=== PATIENT | male | born 1995 | race African-American/Black ===

== ENCOUNTER 2017-10-15 20:37 | Emergency (ER) | payer OTHER ==
[2017-10-15 21:35] LABS: HEMATOCRIT 37.7 % (42.0-52.0); HEMOGLOBIN 12.9 g/dl (13.5-17.5); MEAN CORPUSCULAR HGB CONC 34.2 g/dl (32.0-36.5); MEAN CORPUSCULAR VOLUME 75.9 fl (80.0-96.0); PLATELET COUNT, AUTOMATED 249 10^3/uL (150-450); RED BLOOD COUNT 4.97 10^6/uL (4.30-6.10); RED CELL DISTRIBUTION WIDTH 13.1 % (11.5-14.5)
[2017-10-15 21:46] LABS: AMPHETAMINES LEVEL URINE NEGATIVE (NEGATIVE); BARBITURATES URINE NEGATIVE (NEGATIVE); BENZODIAZEPINES URINE NEGATIVE (NEGATIVE); CANNABINOIDS URINE NEGATIVE (NEGATIVE); COCAINE METABOLITE URINE NEGATIVE (NEGATIVE); METHADONE URINE NEGATIVE (NEGATIVE); OPIATES URINE NEGATIVE (NEGATIVE); PHENCYCLIDINE URINE NEGATIVE (NEGATIVE)
[2017-10-15 21:58] LABS: ACETAMINOPHEN LEVEL 27.1 UG/ML (10.0-30.0); ALBUMIN 4.1 GM/DL (3.2-5.2); ALBUMIN/GLOBULIN RATIO 1.14 (1.00-1.93); ALKALINE PHOSPHATASE 96 U/L (45-117); ALT/SGPT 23 U/L (12-78); ANION GAP 7 MEQ/L (8-16); AST/SGOT 18 U/L (7-37); BILIRUBIN,DIRECT 0.3 MG/DL (0.0-0.2); BILIRUBIN,TOTAL 1.3 MG/DL (0.2-1.0); BLOOD UREA NITROGEN 14 MG/DL (7-18); CALCIUM LEVEL 8.8 MG/DL (8.5-10.1); CARBON DIOXIDE LEVEL 28 MEQ/L (21-32); CHLORIDE LEVEL 105 MEQ/L (98-107); CREATININE FOR GFR 1.13 MG/DL (0.70-1.30); ETHYL ALCOHOL (ETHANOL) 0.003 % (0.000-0.010); GLOMERULAR FILTRATION RATE > 60.0 (>60); GLUCOSE, FASTING 102 MG/DL (70-100); POTASSIUM SERUM 3.8 MEQ/L (3.5-5.1); SALICYLATE LEVEL < 1.7 MG/DL (5.0-30.0); SODIUM LEVEL 140 MEQ/L (136-145); TOTAL PROTEIN 7.7 GM/DL (6.4-8.2)
== END 2017-10-15 23:21 | disposition home or self-care (01) ==
LOC: M ED 20:37
DX: F41.8 Other specified anxiety disorders (principal); F32.9 Major depressive disorder, single episode, unspecified
CPT/HCPCS: G0480

== ENCOUNTER 2017-11-18 13:55 | Inpatient (IN) | payer OTHER ==
[2017-11-18 15:18] LABS: HEMATOCRIT 42.9 % (42.0-52.0); HEMOGLOBIN 14.7 g/dl (13.5-17.5); MEAN CORPUSCULAR HGB CONC 34.3 g/dl (32.0-36.5); MEAN CORPUSCULAR VOLUME 75.8 fl (80.0-96.0); PLATELET COUNT, AUTOMATED 265 10^3/uL (150-450); RED BLOOD COUNT 5.66 10^6/uL (4.30-6.10); RED CELL DISTRIBUTION WIDTH 12.8 % (11.5-14.5); WHITE BLOOD COUNT 6.4 10^3/uL (4.0-10.0)
[2017-11-18 15:33] LABS: ALBUMIN 4.4 GM/DL (3.2-5.2); ALBUMIN/GLOBULIN RATIO 1.13 (1.00-1.93); ALKALINE PHOSPHATASE 113 U/L (45-117); ALT/SGPT 20 U/L (12-78); ANION GAP 8 MEQ/L (8-16); AST/SGOT 11 U/L (7-37); BILIRUBIN,DIRECT 0.3 MG/DL (0.0-0.2); BILIRUBIN,TOTAL 1.3 MG/DL (0.2-1.0); BLOOD UREA NITROGEN 16 MG/DL (7-18); CALCIUM LEVEL 8.9 MG/DL (8.5-10.1); CARBON DIOXIDE LEVEL 28 MEQ/L (21-32); CHLORIDE LEVEL 104 MEQ/L (98-107); ETHYL ALCOHOL (ETHANOL) < 0.003 % (0.000-0.010); GLOMERULAR FILTRATION RATE > 60.0 (>60); GLUCOSE, FASTING 84 MG/DL (70-100); SALICYLATE LEVEL < 1.7 MG/DL (5.0-30.0); SODIUM LEVEL 140 MEQ/L (136-145); THYROID STIMULATING HORMONE 0.909 uIU/ML (0.358-3.740); TOTAL PROTEIN 8.3 GM/DL (6.4-8.2)
[2017-11-18 15:42] LABS: ACETAMINOPHEN LEVEL < 2.0 UG/ML (10.0-30.0)
[2017-11-18 20:18] LABS: AMPHETAMINES LEVEL URINE NEGATIVE (NEGATIVE); BARBITURATES URINE NEGATIVE (NEGATIVE); BENZODIAZEPINES URINE NEGATIVE (NEGATIVE); CANNABINOIDS URINE NEGATIVE (NEGATIVE); COCAINE METABOLITE URINE NEGATIVE (NEGATIVE); METHADONE URINE NEGATIVE (NEGATIVE); OPIATES URINE NEGATIVE (NEGATIVE); PHENCYCLIDINE URINE NEGATIVE (NEGATIVE)
[2017-11-18] MEDS ORDERED: MOM 30ML SUSPENSION UDC PO (23:15)
[2017-11-18] MEDS ORDERED: MAALOX 30 ML SUSP *UDC PO (23:15)
[2017-11-18] MEDS ORDERED: ACETAMINOPHEN TAB 650MG DOSE (2X325MG) PO (23:15)
[2017-11-18] MEDS ORDERED: LORazepam 1 MG TAB PO (23:30)
[2017-11-19] MEDS: CitaloPRAM (CeleXA) 20 MG TAB PO (16:30)
[2017-11-20] MEDS: CitaloPRAM (CeleXA) 20 MG TAB PO (08:28)
[2017-11-21] MEDS: CitaloPRAM (CeleXA) 20 MG TAB PO (08:18)
[2017-11-22] MEDS: CitaloPRAM (CeleXA) 20 MG TAB PO (08:21)
[2017-11-23] MEDS: CitaloPRAM (CeleXA) 20 MG TAB PO (08:17)
[2017-11-23] MEDS: traZODone 50 MG TAB PO (23:01)
[2017-11-24] MEDS: CitaloPRAM (CeleXA) 20 MG TAB PO (08:35)
[2017-11-25] MEDS: CitaloPRAM (CeleXA) 20 MG TAB PO (09:04)
[2017-11-26] MEDS: CitaloPRAM (CeleXA) 20 MG TAB PO (09:06)
[2017-11-27] MEDS: CitaloPRAM (CeleXA) 20 MG TAB PO (08:46)
[2017-11-28] MEDS: CitaloPRAM (CeleXA) 20 MG TAB PO (08:14)
[2017-11-29] MEDS: CitaloPRAM (CeleXA) 20 MG TAB PO (09:00)
[2017-11-30] MEDS: CitaloPRAM (CeleXA) 20 MG TAB PO (08:56)
[2017-12-01] MEDS: CitaloPRAM (CeleXA) 20 MG TAB PO (08:36)
[2017-12-02] MEDS: CitaloPRAM (CeleXA) 20 MG TAB PO (08:18)
== END 2017-12-02 12:45 | disposition home or self-care (01) | DRG 885 ==
LOC: M ED 13:55 → M ED INP 22:03 → M PSY 23:24
DX: F33.2 Major depressive disorder, recurrent severe without psychotic features (principal); F60.2 Antisocial personality disorder; Z63.0 Problems in relationship with spouse or partner

== ENCOUNTER 2018-03-23 16:12 | Emergency (ER) | payer OTHER | END 2018-03-23 19:35 | disposition home or self-care (01) | LOC: M ED 16:12 | DX: F43.0 Acute stress reaction (principal); F32.9 Major depressive disorder, single episode, unspecified; Z79.899 Other long term (current) drug therapy | CPT/HCPCS: 99284 ==

== ENCOUNTER 2018-04-09 22:26 | Inpatient (IN) | payer OTHER ==
[2018-04-09 23:13] LABS: BASO % 0.5 % (0.0-1.0); EOS # 0.2 10^3/uL (0.0-0.50); EOS % 2.9 % (0.0-3.0); HEMATOCRIT 41.2 % (42.0-52.0); HEMOGLOBIN 13.7 g/dl (13.5-17.5); IMMATURE GRANULOCYTE % 0.3 % (0-3.0); LYMPH # 2.1 10^3/uL (1.5-6.5); LYMPH % 36.1 % (24.0-44.0); MEAN CORPUSCULAR HEMOGLOBIN 25.8 pg (27.0-33.0); MEAN CORPUSCULAR HGB CONC 33.3 g/dl (32.0-36.5); MEAN CORPUSCULAR VOLUME 77.7 fl (80.0-96.0); MONO # 0.9 10^3/uL (0.0-0.8); MONO % 14.9 % (0.0-5.0); NEUTROPHILS # 2.7 10^3/uL (1.8-7.7); NEUTROPHILS % 45.3 % (36.0-66.0); PLATELET COUNT, AUTOMATED 277 10^3/uL (150-450); RED CELL DISTRIBUTION WIDTH 12.8 % (11.5-14.5); WHITE BLOOD COUNT 5.9 10^3/uL (4.0-10.0)
[2018-04-09] MEDS: CHARCOAL ACTIVATED LIQUID 25 GM/120 ML BTL PO (23:33)
[2018-04-09 23:40] LABS: ACETAMINOPHEN LEVEL 34.9 UG/ML (10.0-30.0); ALBUMIN 3.9 GM/DL (3.2-5.2); ALBUMIN/GLOBULIN RATIO 0.98 (1.00-1.93); ALKALINE PHOSPHATASE 105 U/L (45-117); ALT/SGPT 29 U/L (12-78); ANION GAP 9 MEQ/L (8-16); AST/SGOT 14 U/L (7-37); BILIRUBIN,DIRECT 0.1 MG/DL (0.0-0.2); BILIRUBIN,TOTAL 0.6 MG/DL (0.2-1.0); BLOOD UREA NITROGEN 18 MG/DL (7-18); CALCIUM LEVEL 8.6 MG/DL (8.5-10.1); CARBON DIOXIDE LEVEL 28 MEQ/L (21-32); CHLORIDE LEVEL 102 MEQ/L (98-107); CPK CREATINE PHOSPHOKINASE 146 U/L (39-308); CREATININE FOR GFR 1.19 MG/DL (0.70-1.30); ETHYL ALCOHOL (ETHANOL) < 0.003 % (0.000-0.010); GLOMERULAR FILTRATION RATE > 60.0 (>60); GLUCOSE, FASTING 97 MG/DL (70-100); POTASSIUM SERUM 3.8 MEQ/L (3.5-5.1); SALICYLATE LEVEL < 1.7 MG/DL (5.0-30.0); SODIUM LEVEL 139 MEQ/L (136-145); TOTAL PROTEIN 7.9 GM/DL (6.4-8.2)
[2018-04-10 00:23] LABS: CK-MB VALUE MASS < 1.0 NG/ML (<3.6); MB/CK RELATIVE INDEX 0.68 (< OR =4); TROPONIN I < 0.02 NG/ML (< 0.10)
[2018-04-10 02:23] LABS: ACETAMINOPHEN LEVEL 18.5 UG/ML (10.0-30.0)
[2018-04-10] MEDS ORDERED: METOCLOPRAMIDE INJ 10MG/2ML VIAL (J2765) IV (11:45)
[2018-04-10 11:49] LABS: AMPHETAMINES LEVEL URINE NEGATIVE (NEGATIVE); BARBITURATES URINE NEGATIVE (NEGATIVE); BENZODIAZEPINES URINE NEGATIVE (NEGATIVE); CANNABINOIDS URINE NEGATIVE (NEGATIVE); COCAINE METABOLITE URINE NEGATIVE (NEGATIVE); METHADONE URINE NEGATIVE (NEGATIVE); OPIATES URINE NEGATIVE (NEGATIVE); PHENCYCLIDINE URINE NEGATIVE (NEGATIVE)
[2018-04-11 06:18] LABS: EOS # 0.2 10^3/uL (0.0-0.50); EOS % 4.7 % (0.0-3.0); HEMATOCRIT 39.6 % (42.0-52.0); HEMOGLOBIN 13.6 g/dl (13.5-17.5); IMMATURE GRANULOCYTE % 0.2 % (0-3.0); LYMPH # 1.8 10^3/uL (1.5-6.5); LYMPH % 43.9 % (24.0-44.0); MEAN CORPUSCULAR HGB CONC 34.3 g/dl (32.0-36.5); MEAN CORPUSCULAR VOLUME 75.6 fl (80.0-96.0); MONO # 0.6 10^3/uL (0.0-0.8); MONO % 14.5 % (0.0-5.0); NEUTROPHILS # 1.4 10^3/uL (1.8-7.7); NEUTROPHILS % 35.7 % (36.0-66.0); PLATELET COUNT, AUTOMATED 276 10^3/uL (150-450); RED BLOOD COUNT 5.24 10^6/uL (4.30-6.10); RED CELL DISTRIBUTION WIDTH 12.6 % (11.5-14.5)
[2018-04-11 06:40] LABS: ANION GAP 5 MEQ/L (8-16); BLOOD UREA NITROGEN 16 MG/DL (7-18); CALCIUM LEVEL 8.9 MG/DL (8.5-10.1); CARBON DIOXIDE LEVEL 30 MEQ/L (21-32); CHLORIDE LEVEL 104 MEQ/L (98-107); GLOMERULAR FILTRATION RATE > 60.0 (>60); GLUCOSE, FASTING 105 MG/DL (70-100); POTASSIUM SERUM 4.1 MEQ/L (3.5-5.1); SODIUM LEVEL 139 MEQ/L (136-145)
== END 2018-04-13 15:30 | DRG 918 ==
LOC: M ED 22:26 → M ED INP 04-10 11:39 → M MSPAV 04-10 20:15
DX: T39.1X2A Poisoning by 4-Aminophenol derivatives, intentional self-harm, initial encounter (principal); T43.222A Poisoning by selective serotonin reuptake inhibitors, intentional self-harm, initial encounter; T14.91XA Suicide attempt, initial encounter; F32.9 Major depressive disorder, single episode, unspecified; Z79.899 Other long term (current) drug therapy; Y92.139 Unspecified place military base as the place of occurrence of the external cause

== ENCOUNTER 2018-04-13 15:22 | Inpatient (IN) | payer OTHER ==
[~2018-04-13 15:22] MED LIST: IBUPROFEN 400 MG TAB PO; MOM 30ML SUSPENSION UDC PO
[2018-04-14] MEDS ORDERED: OLANZapine ORAL DISINTEGRATING TAB 5MG PO (17:30)
[2018-04-14] MEDS: OLANZapine ORAL DISINTEGRATING TAB 5MG PO (17:42)
[2018-04-14] MEDS: traZODone 50 MG TAB PO (22:52)
[2018-04-15] MEDS: VENLAFAXINE 37.5 MG TAB PO (15:06)
[2018-04-15] MEDS: traZODone 50 MG TAB PO (21:31)
[2018-04-16] MEDS: VENLAFAXINE 37.5 MG TAB PO (09:38)
[2018-04-16] MEDS: traZODone 50 MG TAB PO ×2 (20:55→23:22)
[2018-04-17] MEDS: VENLAFAXINE 37.5 MG TAB PO (09:44)
[2018-04-17] MEDS: traZODone 50 MG TAB PO (22:52)
[2018-04-18] MEDS: VENLAFAXINE 37.5 MG TAB PO (08:06)
[2018-04-19] MEDS: traZODone 50 MG TAB PO ×2 (00:06→22:29)
[2018-04-19] MEDS: VENLAFAXINE 37.5 MG TAB PO (09:58)
[2018-04-20] MEDS: VENLAFAXINE 37.5 MG TAB PO (09:27)
[2018-04-20] MEDS: traZODone 50 MG TAB PO (22:19)
[2018-04-21] MEDS: VENLAFAXINE 37.5 MG TAB PO (09:34)
== END 2018-04-21 12:00 | disposition home or self-care (01) | DRG 885 ==
LOC: M PSY 15:22
DX: F33.9 Major depressive disorder, recurrent, unspecified (principal); Z91.5 Personal history of self-harm

== ENCOUNTER 2018-07-09 13:32 | Emergency (ER) | payer OTHER ==
[~2018-07-09] VITALS: Ht 180.3 cm; Wt 88.6 kg
[~2018-07-09 13:32] MED LIST changes: +ACET1TAB55 PO; +ARIP5TA PO; +CELE10TA PO; +CELE20TA PO; +CELE40TA PO; +CITA-231 PO; -IBUPROFEN 400 MG TAB PO; +MIRT15TA3 PO; -MOM 30ML SUSPENSION UDC PO; +NICO21PAT TD; +TRAZO50TA PO; +VENL37TA PO
[2018-07-09 14:29] LABS: HEMATOCRIT 43.1 % (42.0-52.0); HEMOGLOBIN 14.8 g/dl (13.5-17.5); MEAN CORPUSCULAR HEMOGLOBIN 26.1 pg (27.0-33.0); MEAN CORPUSCULAR HGB CONC 34.3 g/dl (32.0-36.5); MEAN CORPUSCULAR VOLUME 76.1 fl (80.0-96.0); PLATELET COUNT, AUTOMATED 291 10^3/uL (150-450); RED BLOOD COUNT 5.66 10^6/uL (4.30-6.10); WHITE BLOOD COUNT 4.7 10^3/uL (4.0-10.0)
[2018-07-09 15:13] LABS: AMPHETAMINES LEVEL URINE NEGATIVE (NEGATIVE); BARBITURATES URINE NEGATIVE (NEGATIVE); BENZODIAZEPINES URINE NEGATIVE (NEGATIVE); CANNABINOIDS URINE NEGATIVE (NEGATIVE); COCAINE METABOLITE URINE NEGATIVE (NEGATIVE); METHADONE URINE NEGATIVE (NEGATIVE); OPIATES URINE NEGATIVE (NEGATIVE); PHENCYCLIDINE URINE NEGATIVE (NEGATIVE)
[2018-07-09 15:24] LABS: ACETAMINOPHEN LEVEL < 2.0 UG/ML (10.0-30.0); ALBUMIN 4.2 GM/DL (3.2-5.2); ALT/SGPT 29 U/L (12-78); BILIRUBIN,DIRECT 0.2 MG/DL (0.0-0.2); BILIRUBIN,TOTAL 0.7 MG/DL (0.2-1.0); BLOOD UREA NITROGEN 19 MG/DL (7-18); CALCIUM LEVEL 9.3 MG/DL (8.5-10.1); CARBON DIOXIDE LEVEL 27 MEQ/L (21-32); CHLORIDE LEVEL 102 MEQ/L (98-107); CREATININE FOR GFR 1.15 MG/DL (0.70-1.30); ETHYL ALCOHOL (ETHANOL) < 0.003 % (0.000-0.010); GLOMERULAR FILTRATION RATE > 60.0 (>60); GLUCOSE, FASTING 96 MG/DL (70-100); SALICYLATE LEVEL < 1.7 MG/DL (5.0-30.0); SODIUM LEVEL 137 MEQ/L (136-145); THYROID STIMULATING HORMONE 0.911 uIU/ML (0.358-3.740); TOTAL PROTEIN 8.2 GM/DL (6.4-8.2)
[2018-07-09 17:43] VITALS: BP 133/84
== END 2018-07-09 17:49 | disposition home or self-care (01) ==
LOC: M ED 13:32
DX: F43.20 Adjustment disorder, unspecified (principal); F33.9 Major depressive disorder, recurrent, unspecified; Z79.899 Other long term (current) drug therapy
CPT/HCPCS: 36415; 80048; 80076; 80307; 84443; 85027; 99284; G0480

== ENCOUNTER 2018-08-12 17:47 | Inpatient (IN) | payer OTHER ==
[~2018-08-12] VITALS: Ht 182.9 cm; Wt 93.3 kg
[2018-08-12 18:07] LABS: BASO % 0.7 % (0.0-1.0); EOS # 0.1 10^3/uL (0.0-0.50); EOS % 1.6 % (0.0-3.0); HEMATOCRIT 41.8 % (42.0-52.0); HEMOGLOBIN 14.4 g/dl (13.5-17.5); LYMPH # 1.9 10^3/uL (1.5-6.5); MEAN CORPUSCULAR HEMOGLOBIN 26.1 pg (27.0-33.0); MEAN CORPUSCULAR HGB CONC 34.4 g/dl (32.0-36.5); MEAN CORPUSCULAR VOLUME 75.9 fl (80.0-96.0); MONO # 0.8 10^3/uL (0.0-0.8); MONO % 14.9 % (0.0-5.0); NEUTROPHILS # 2.7 10^3/uL (1.8-7.7); NEUTROPHILS % 48.4 % (36.0-66.0); PLATELET COUNT, AUTOMATED 246 10^3/uL (150-450); RED BLOOD COUNT 5.51 10^6/uL (4.30-6.10); WHITE BLOOD COUNT 5.5 10^3/uL (4.0-10.0)
[2018-08-12] MEDS ORDERED: NS 2,000 ML IV ONE (18:30)
[2018-08-12 18:53] LABS: ACETAMINOPHEN LEVEL < 2.0 UG/ML (10.0-30.0); ALBUMIN 4.1 GM/DL (3.2-5.2); ALT/SGPT 30 U/L (12-78); BILIRUBIN,DIRECT 0.3 MG/DL (0.0-0.2); BLOOD UREA NITROGEN 16 MG/DL (7-18); CALCIUM LEVEL 8.5 MG/DL (8.5-10.1); CARBON DIOXIDE LEVEL 26 MEQ/L (21-32); CHLORIDE LEVEL 102 MEQ/L (98-107); CPK CREATINE PHOSPHOKINASE 116 U/L (39-308); ETHYL ALCOHOL (ETHANOL) 0.004 % (0.000-0.010); GLOMERULAR FILTRATION RATE > 60.0 (>60); GLUCOSE, FASTING 135 MG/DL (70-100); SALICYLATE LEVEL < 1.7 MG/DL (5.0-30.0); SODIUM LEVEL 138 MEQ/L (136-145)
--- NOTE | 2018-08-12 21:10 | ECGEPIP ---
Stationary ECG Study [facility] - ED Test Date: 2018-08-12 Pat Name: RODGER LANDA Department: Room: - Gender: M Poultry Raiser: hannah : 1995 Requested By: Kwaku Smith Order Number: [id number] Reading MD: Jenna Ceron Measurements Intervals [place] Rate: 70 P: 68 AR: 137 QRS: 77 QRSD: 106 T: 55 QT: 451 QTc: 489 Interpretive Statements SINUS RHYTHM LEFT VENTRICULAR HYPERTROPHY AND ST-T CHANGE EARLY REPOLARIZATION, CLINICAL CORRELATION SIMILAR 04/10/18 Electronically Signed On 08-12-2018 21:10:01 EST by Jenna Ceron
[2018-08-12] MEDS ORDERED: PHENYLEPHRINE INJ 10MG/ML VIAL (J2370) SQ ONE (22:00)
[2018-08-12] MEDS ORDERED: NS 1,000 ML IV ONE (23:00)
[2018-08-12] MEDS ORDERED: POTASSIUM CHLORIDE 10 MEQ SR TABLET PO ONE (23:15)
[2018-08-13 00:28] LABS: AMPHETAMINES LEVEL URINE NEGATIVE (NEGATIVE); BARBITURATES URINE NEGATIVE (NEGATIVE); BENZODIAZEPINES URINE NEGATIVE (NEGATIVE); CANNABINOIDS URINE NEGATIVE (NEGATIVE); COCAINE METABOLITE URINE NEGATIVE (NEGATIVE); METHADONE URINE NEGATIVE (NEGATIVE); OPIATES URINE NEGATIVE (NEGATIVE); PHENCYCLIDINE URINE NEGATIVE (NEGATIVE)
[2018-08-13] MEDS ORDERED: LORazepam 1 MG TAB PO PRN (01:00)
[2018-08-13] MEDS ORDERED: ACETAMINOPHEN TAB 650MG DOSE (2X325MG) PO PRN (01:00)
[2018-08-13] MEDS ORDERED: MOM 30ML SUSPENSION UDC PO PRN (01:00)
[2018-08-13] MEDS ORDERED: MAALOX 30 ML SUSP *UDC PO PRN (01:00)
[2018-08-13] MEDS ORDERED: TRAZ-160 PO (01:23)
[2018-08-13] MEDS ORDERED: VENL75CA47 PO (01:23)
[2018-08-13 01:40] VITALS: BP 126/67
[2018-08-13 06:24] VITALS: BP 131/60
[2018-08-13] MEDS ORDERED: VENLAFAXINE 37.5 MG TAB PO SCH (09:00)
--- NOTE | 2018-08-13 09:50 | HPEPDOC ---
[facility] Medical History & Physical Date of Admission Aug 12, 2018 History and Physical PCP: KISHA Raines ATTENDING: Dr. Ashish Calvin HPI: 23 yo M admitted to [facility] for unspecified depressive disorder, being medically examined today. The patient was brought to the emergency department as per EMS after reporting taking 1100 mg of trazodone at 1640 hrs. on 08/12/18 in a suicide attempt. The patient was medically stabilized in the emergency department, poison control consulted and was medically cleared for admission to [facility]. The pt has no voiced concerns at this time. The patient denies fevers, chills, chest pain, shortness of breath, cough, abdo isauro pain, urinary complaints, change in bowel habits. Denies nausea, vomiting, diarrhea. PMHx: Anxiety Depression History of SI/SA, overdose Self-harm, cutting PSHX: Denies SOCHX: Resides in: [facility], from [place] Marital Status: Employment: Active duty Tobacco use: denies ETOH: Patient denies Illicit Drugs: Denies IV Drug Use: Denies FAMHX: Patient reports that he is from [place], he reported he has no family there, that his family was . ROS: As noted in HPI, otherwise 11pt ROS of systems reviewed and unremarkable. PE: GEN: 23 yo M, appears stated age. Well-nourished, well developed. No acute distress. Alert and oriented x 3. Pleasant, interactive. HEENT: Normocephalic, atraumatic. Pupils are equal, round, and reactive to light. Extraocular movements are intact. No nystagmus appreciated. Sclera are nonicteric. Conjunctiva without injection. Nose midline. Nasal turbinates without bogginess. EACs both patent BL. TMs both visualized and becker with good cone of light, no bulging or erythema. No facial asymmetry. Moist mucous membranes. Dentition fair. Pharynx pink and moist, no cobblestoning. Neck supple, trachea midline. No lymphadenopathy or thyromegaly appreciated. CHEST: Regular rate and rhythm, +S1, +S2 LUNGS: Clear to auscultation bilaterally. No wheezes, rales, or rhonchi. Breathing appears symmetric and easy. Patient is speaking in full sentences. No accessory muscle use. ABD: Round, soft, non-tender, non-distended. +Bowel sounds throughout. No rebound or guarding. No costovertebral angle tenderness. EXT: Pulses 2+ bilaterally dorsalis pedis and radial. No lower extremity edema appreciated. SKIN: [place], dry, warm. Capillary refill <2sec. No rashes. NEURO: Alert and oriented x 3. Cranial nerves III-XII are intact. No focal deficits appreciated. EKG: SINUS RHYTHM LEFT VENTRICULAR HYPERTROPHY AND ST-T CHANGE EARLY REPOLARIZATION, CLINICAL CORRELATION SIMILAR 04/10/18 Electronically Signed On 08-12-2018 21:10:01 EST by Jenna Ceron A&P: 23 yo M admitted to [facility] for unspecified depressive disorder 1. Psych. Plan per Psychiatry. EKG on file. 2. Follow up with PCP on discharge. 3. Hypokalemia. Status post supplement in the emergency department. Recheck BMP. 4. Staff member Georges present throughout exam. Vital Signs Vital Signs Date Time Temp Pulse Resp B/P (MAP) Pulse Ox O2 Delivery O2 Flow Rate FiO2 08/13/18 06:24 98.3 87 16 131/60 (83) 08/13/18 01:27 99 08/12/18 18:22 Room Air Laboratory Data Labs 24H Laboratory Tests 2 08/12/18 17:53: Immature Granulocyte % (Auto) 0.4, White Blood Count 5.5, Red Blood Count 5.51, Hemoglobin 14.4, Hematocrit 41.8L, Mean Corpuscular Volume 75.9L, Mean Corpuscular Hemoglobin 26.1L, Mean Corpuscular Hemoglobin Concent 34.4, Red Cell Distribution Width 12.4, Platelet Count 246, Neutrophils (%) (Auto) 48.4, Ly mphocytes (%) (Auto) 34.0, Monocytes (%) (Auto) 14.9H, Eosinophils (%) (Auto) 1.6, Basophils (%) (Auto) 0.7, Neutrophils # (Auto) 2.7, Lymphocytes # (Auto) 1.9, Monocytes # (Auto) 0.8, Eosinophils # (Auto) 0.1, Basophils # (Auto) 0.0, Nucleated Red Blood Cells % (auto) 0.0, Anion Gap 10, Glomerular Filtration Rate > 60.0, Calcium Level 8.5, Aspartate Amino Transf (AST/SGOT) 12, Alanine Aminotransferase (ALT/SGPT) 30, Alkaline Phosphatase 86, Total Bilirubin 1.0, Direct Bilirubin 0.3H, Total Creatine Kinase 116, Total Protein 8.0, Albumin 4.1, Albumin/Globulin Ratio 1.05, Thyroid Stimulating Hormone (TSH) 1.020, Salicylates Level < 1.7L, Acetaminophen Level < 2.0L, Ethyl Alcohol Level 0.004 08/12/18 18:00: Bedside Glucose (Misc Panel) 166H 08/12/18 23:12: Urine Amphetamines Screen NEGATIVE, Urine Benzodiazepines Screen NEGATIVE, Urine Opiates Screen NEGATIVE, Urine Methadone Screen NEGATIVE, Urine Barbiturates Screen NEGATIVE, Urine Phencyclidine Screen NEGATIVE, Urine Cocaine Metabolite Screen NEGATIVE, Urine Cannabinoids Screen NEGATIVE CBC/BMP Laboratory Tests 08/12/18 17:53 Red Blood Count 5.51, Mean Corpuscular Volume 75.9 L, Mean Corpuscular Hemoglobin 26.1 L, Mean Corpuscular Hemoglobin Concent 34.4, Red Cell Di stribution Width 12.4, Neutrophils (%) (Auto) 48.4, Lymphocytes (%) (Auto) 34.0, Monocytes (%) (Auto) 14.9 H, Eosinophils (%) (Auto) 1.6, Basophils (%) (Auto) 0.7, Neutrophils # (Auto) 2.7, Lymphocytes # (Auto) 1.9, Monocytes # (Auto) 0.8, Eosinophils # (Auto) 0.1, Basophils # (Auto) 0.0 Home Medications Scheduled Venlafaxine HCl (Venlafaxine HCl ER) 75 Mg Capcr, 75 MG PO DAILY Scheduled PRN Trazodone HCl (Trazodone HCl) 50 Mg Tab, 50 MG PO QHS PRN for INSOMNIA Allergies Coded Allergies: No Known Drug Allergy (Verified Allergy, Unknown, 10/15/17) Lashay Nuno Aug 13, 2018 09:50
--- NOTE | 2018-08-13 11:01 | MHHPEPDOC ---
General Date Of Admission: Aug 12, 2018 Legal Status: 9.39 Chief Complaint "I wanted to ." History of Present Illness HISTORY OF THE PRESENT ILLNESS: Patient is a 23 -year-old , AD, male, with a history of depression and multiple admission [facility] with last being 04/13/18 for SI who was brought to ED by EMS after he called his CO and told him he took an OD of trazodone as a suicide attempt stating "I want to ." Per ED pt took 1,100mg trazodone and received activated charcoal in the ED. Pt in the ED endorsed depression, anxiety, SI due to multiple psychosocial stresses, the biggest one being med-boarded out of the with no plans as to what to do or where to go for the future. Per Ed, pt was vague and guarded. Psychiatric Review of Systems Depression (2 or more weeks): depressed mood, suicidal thoughts Tiffany (4 or more days of): denies Psychosis: denies PTSD: denies Anxiety: situational anxiety, stressor related anxiety Anxiety/ 6 months or more of: easily fatigued Past Psychiatric History Previous Psychiatric Diagnosis: depression, per previous history "Mother said he was diagnosed with ODD as a child and she thinks he might be Borderline." Previous Psychiatric Admissions: several admits [facility], last 03/17/18 for SI and OD celexa and tylenol Suicide Attempts: Recent suicide attempt by OD with Tylenol and Celexa Psychiatric Follow-up: [facility] Psychiatric medications: Prozac, Zoloft, Paxil, Celexa in the past Past Medical History Medical Problems "various injuries" but none list in previous med history Head Injury: No Seizures: No Hospitalizations: No Surgeries: No Family Medical/Psychiatric HX Medical Problems noncontributory Psychiatric Disorders: No Addiction: No Suicide Attemps/Completions: No Addiction History alcohol (occassional) Social History Childhood: Parents got when he was 8, parents were not in good terms, he felt he had to pick sides, his mother got re , she had an open relation whith her new , they were having sex frequently, they were loud, he and his sister were listening and they ( his parents) didn't care about. He tries to avoid talking to his father, he doesn't have relationship with him but he gets in touch with his mother, they didn't get along ( the patient and his mother) , until he got in the [employer]. 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 Social Support: "nobody" Legal: Denies Marital: , his is , they are , they are not talking to each other, 1 child with estranged Mental Status Examination General Appearance: well groomed, appears stated age, hospital scubs/clothing Build: average Demeanor: withdrawn Eye Contact: fair Activity: slowed Behavior: cooperative, withdrawn Speech: clear, low in volume Mood: depressed Mood alright Affect: constricted Thought Process: logical/linear, depressed, intact Thought Content (Delusions): none reported, denies SI, HI, AVH Thought Content (Other): none reported, appropriate Thought Content (Aggressive): none reported Perception (Hallucinations): none reported Perception (Other): none reported Cognition (Impairment of): none reported Cognition(Intelligence Est.): average Oriented: Awake, Alert, Oriented times three Insight: fair Judgment: Fair Psychosis: Denies Diagnoses Depression Unspecified R/O adjustment d/o with depression R/O borderline vs antisocial personality d/o (based on history of ODD) Assessment Pt seen and states he's "alright." States he took an OD of trazodone last night b/c he's being med boarded out of the for "various injuries" and has no plan regarding where he will go, live, work in the future. Pt is withdrawn stating he has a headache and not fully participating with interview. States he has been taking effexor xr which has been beneficial and is agreeable to increase for depression. Denies current SI/HI, hallucinations, delusions. Feels safe here. Initial Treatment Plan 1. Patient was admitted on a 9.39 status. 2. Complete history was obtained. 3. With patients permission, family will be contacted and database will be expanded. 4. Patients medication regimen will be reviewed and changed accordingly. 5. Patient will be provided with protected environment. 6. Patient will be treated with individual, group, and milieu therapies. 7. Patient will receive supportive psych-education. 8. Discharge planning will commence immediately. 9. Outpatient follow-up treatment will be strongly recommended. 10. The initial treatment plan will focus initially on: * Depression. * Risk for suicide. * Substance abuse. 11. increase effexor xr 150mg daily ESTIMATED LENGTH OF STAY: 3-5 DAYS. TIME SPENT COUNSELING AND COORDINATING INITIAL CARE: 60 minutes. Vital Signs Vital Signs Date Time Temp Pulse Resp B/P (MAP) Pulse Ox O2 Delivery O2 Flow Rate FiO2 08/13/18 06:24 98.3 87 16 131/60 (83) 08/13/18 01:27 99 08/12/18 18:22 Room Air Laboratory Data 24H Labs Laboratory Tests 2 08/12/18 17:53: Immature Granulocyte % (Auto) 0.4, White Blood Count 5.5, Red Blood Count 5.51, Hemoglobin 14.4, Hematocrit 41.8L, Mean Corpuscular Volume 75.9L, Mean Corpuscular Hemoglobin 26.1L, Mean Corpuscular Hemoglobin Concent 34.4, Red Cell Distribution Width 12.4, Platelet Count 246, Neutrophils (%) (Auto) 48.4, Lymphocytes (%) (Auto) 34.0, Monocytes (%) (Auto) 14.9H, Eosinophils (%) (Auto) 1.6, Basophils (%) (Auto) 0.7, Neutrophils # (Auto) 2.7, Lymphocytes # (Auto) 1.9, Monocytes # (Auto) 0.8, Eosinophils # (Auto) 0.1, Basophils # (Auto) 0.0, Nucleated Red Blood Cells % (auto) 0.0, Anion Gap 10, Glomerular Filtration Rate > 60.0, Calcium Level 8.5, Aspartate Amino Transf (AST/SGOT) 12, Alanine Aminotransferase (ALT/SGPT) 30, Alkaline Phosphatase 86, Total Bilirubin 1.0, Direct Bilirubin 0.3H, Total Creatine Kinase 116, Total Protein 8.0, Albumin 4.1, Albumin/Globulin Ratio 1.05, Thyroid Stimulating Hormone (TSH) 1.020, Salicylates Level < 1.7L, Acetaminophen Level < 2.0L, Ethyl Alcohol Level 0.004 08/12/18 18:00: Bedside Glucose (Misc Panel) 166H 08/12/18 23:12: Urine Amphetamines Screen NEGATIVE, Urine Benzodiazepines Screen NEGATIVE, Urine Opiates Screen NEGATIVE, Urine Methadone Screen NEGATIVE, Urine Barbiturates Screen NEGATIVE, Urine Phencyclidine Screen NEGATIVE, Urine Cocaine Metabolite Screen NEGATIVE, Urine Cannabinoids Screen NEGATIVE CBC/BMP Laboratory Tests 08/12/18 17:53 Red Blood Count 5.51, Mean Corpuscular Volume 75.9 L, Mean Corpuscular Hemoglobin 26.1 L, Mean Corpuscular Hemoglobin Concent 34.4, Red Cell Distribution Width 12.4, Neutrophils (%) (Auto) 48.4, Lymphocytes (%) (Auto) 34.0, Monocytes (%) (Auto) 14.9 H, Eosinophils (%) (Auto) 1.6, Basophils (%) (Auto) 0.7, Neutrophils # (Auto) 2.7, Lymphocytes # (Auto) 1.9, Monocytes # (Auto) 0.8, Eosinophils # (Auto) 0.1, Basophils # (Auto) 0.0 Medications Scheduled Venlafaxine HCl (Venlafaxine HCl ER) 75 Mg Capcr, 75 MG PO DAILY, (Reported) Scheduled PRN Trazodone HCl (Trazodone HCl) 50 Mg Tab, 50 MG PO QHS PRN for INSOMNIA, (Reported) Allergies Coded Allergies: No Known Drug Allergy (Verified Allergy, Unknown, 10/15/17) LISBETH ORANTES DO Aug 13, 2018 11:01 am
[2018-08-13] MEDS ORDERED: diphenhydrAMINE 50 MG CAP PO PRN (11:15)
[2018-08-13] MEDS ORDERED: VENLAFAXINE **XR** 75MG CAPSULE PO ONE (11:15)
[2018-08-13 11:26] LABS: BLOOD UREA NITROGEN 10 MG/DL (7-18); CALCIUM LEVEL 8.5 MG/DL (8.5-10.1); CARBON DIOXIDE LEVEL 28 MEQ/L (21-32); CHLORIDE LEVEL 107 MEQ/L (98-107); CREATININE FOR GFR 1.12 MG/DL (0.70-1.30); GLOMERULAR FILTRATION RATE > 60.0 (>60); GLUCOSE, FASTING 105 MG/DL (70-100); POTASSIUM SERUM 4.2 MEQ/L (3.5-5.1); SODIUM LEVEL 140 MEQ/L (136-145)
[2018-08-14 06:02] VITALS: BP 122/57
[2018-08-14] MEDS: VENLAFAXINE **XR** 75MG CAPSULE PO SCH (10:00)
[2018-08-14 12:00] VITALS: BP 130/82
--- NOTE | 2018-08-14 12:19 | MHIPNPDOC ---
[facility] Progress Note Progress Note DATE OF SERVICE: 08/14/18 HISTORY: Patient is a 23 -year-old , AD, male, with a history of depression and multiple admission [facility] with last being 04/13/18 for SI who was brought to ED by EMS after he called his CO and told him he took an OD of trazodone as a suicide attempt stating "I want to ." Per ED pt took 1,100mg trazodone and received activated charcoal in the ED. Pt in the ED endorsed depression, anxiety, SI due to multiple psychosocial stresses, the biggest one being med-boarded out of the with no plans as to what to do or where to go for the future. Per Ed, pt was vague and guarded. VITAL SIGNS: See below. NEW TEST RESULTS: See below. CURRENT MEDICATIONS: See below. MENTAL STATUS EXAMINATION: General Appearance: well groomed, appears stated age, hospital scrubs/clothing Build: average Demeanor: withdrawn Eye Contact: fair Activity: average Behavior: cooperative, withdrawn Speech: clear, low in volume Mood: euthymic, flat Mood better Affect: euthymic, flat Thought Process: logical/linear, intact Thought Content (Delusions): none reported, denies SI, HI, AVH Thought Content (Other): none reported, appropriate Thought Content (Aggressive): none reported Perception (Hallucinations): none reported Perception (Other): none reported Cognition (Impairment of): none reported Cognition(Intelligence Est.): average Oriented: Awake, Alert, Oriented times three Insight: fair Judgment: Fair Psychosis: Denies DIAGNOSES: Depression Unspecified R/O adjustment d/o with depression R/O borderline vs antisocial personality d/o (based on history of ODD) ASSESSMENT:Pt seen and states that his mood is better. States he slept well last night. Feels he is tolerating his medications and increase in Effexor is beneficial. He is attending groups and finding them helpful. He denies insomnia, SI/HI, hallucinations, delusions. 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 States he likes to write and encouraged to speak with guidance counselor at regarding future plans whether it be school or a job so he has a plan. States he fear failure which is why he hasn't gone yet. Pt feels safe here. MANAGEMENT PLAN: continue plan effexor xr 150mg daily TIME SPENT: 30minutes. Vital Signs Vital Signs Date Time Temp Pulse Resp B/P (MAP) Pulse Ox O2 Delivery O2 Flow Rate FiO2 08/14/18 06:02 98.7 70 18 122/57 (78) 08/13/18 01:27 99 08/12/18 18:22 Room Air Current Medications Current Medications Acetaminophen (Tylenol Tab) 650 mg Q6HP PRN PO HEADACHE or DISCOMFORT; Start 08/13/18 at 01:00 Al Hydrox/Mg Hydrox/Simethicone (Mylanta) 30 ml Q4HP PRN PO HEARTBURN/INDIGESTION; Start 08/13/18 at 01:00 Diphenhydramine HCl (Benadryl) 50 mg QHSP PRN PO INSOMNIA; Start 08/13/18 at 11:15 Home Med (Med Rec Complete!) ASDIRECTED XX ; Start 08/13/18 at 01:30; Stop 08/13/18 at 01:30; Status DC Lorazepam (Ativan) 1 mg Q4HP PRN PO ANXIETY/AGITATION; Start 08/13/18 at 01:00 Magnesium Hydroxide (Milk Of Magnesia) 30 ml DAILYPRN PRN PO CONSTIPATION; Start 08/13/18 at 01:00 Venlafaxine HCl (Effexor Xr) 150 mg DAILY PO Last administered on 08/14/18at 10:00; Start 08/14/18 at 09:00 Venlafaxine HCl (Effexor) 75 mg DAILY PO Last administered on 08/13/18at 10:13; Start 08/13/18 at 09:00; Stop 08/13/18 at 11:02; Status DC Allergies Coded Allergies: No Known Drug Allergy (Verified Allergy, Unknown, 10/15/17) LISBETH ORANTES DO Aug 14, 2018 12:19 pm
[2018-08-14 18:00] VITALS: BP 123/61
[2018-08-14 21:00] VITALS: BP 128/74
[2018-08-15 06:18] VITALS: BP 112/56
[2018-08-15] MEDS: VENLAFAXINE **XR** 75MG CAPSULE PO SCH (09:24)
[2018-08-15 18:03] VITALS: BP 140/72
--- NOTE | 2018-08-15 19:31 | MHIPNPDOC ---
[facility] Progress Note Progress Note DATE OF SERVICE: 08/15/18 HISTORY: Patient is a 23 -year-old , AD, male, with a history of depression and multiple admission [facility] with last being 04/13/18 for SI who was brought to ED by EMS after he called his CO and told him he took an OD of trazodone as a suicide attempt stating "I want to ." Per ED pt took 1,100mg trazodone and received activated charcoal in the ED. Pt in the ED endorsed depression, anxiety, SI due to multiple psychosocial stresses, the biggest one being med-boarded out of the with no plans as to what to do or where to go for the future. Per Ed, pt was vague and guarded. VITAL SIGNS: See below. NEW TEST RESULTS: See below. CURRENT MEDICATIONS: See below. MENTAL STATUS EXAMINATION: General Appearance: well groomed, appears stated age, hospital scrubs/clothing Build: average Demeanor: withdrawn Eye Contact: fair Activity: average Behavior: cooperative but guarded Speech: clear, low in volume Mood: euthymic, flat Mood "I'm feeling fine" Affect: euthymic, flat Thought Process: logical/linear, intact Thought Content (Delusions): none reported, denies SI, HI, AVH Thought Content (Other): none reported, appropriate Thought Content (Aggressive): none reported Perception (Hallucinations): none reported Perception (Other): none reported Cognition (Impairment of): none reported Cognition(Intelligence Est.): average Oriented: Awake, Alert, Oriented times three Insight: fair Judgment: Fair Psychosis: Denies DIAGNOSES: Depression Unspecified R/O adjustment d/o with depression R/O borderline vs antisocial personality d/o (based on history of ODD) ASSESSMENT: Patient says that he has been sleeping well, has good appetite, he denies feeling suicidal, denies feeling homicidal, denies auditory/visual hallucinations and denies thought delusions. He says he spoke with one of the Nurses and the biomedical engineering professor (yesterday) and he felt very well after both conversations. Reports that he has not being able to see his 4 month old son but he knows the baby is fine. Patient was guarded, initially and then, he relaxed. His mood and affect were bright. MANAGEMENT PLAN: Will continue with current treatment plan (As per Dr. Mcmanus) effexor xr 150mg daily TIME SPENT: 20minutes. Vital Signs Vital Signs Date Time Temp Pulse Resp B/P (MAP) Pulse Ox O2 Delivery O2 Flow Rate FiO2 08/15/18 18:03 98.9 82 18 140/72 (94) 08/13/18 01:27 99 08/12/18 18:22 Room Air Current Medications Current Medications Acetaminophen (Tylenol Tab) 650 mg Q6HP PRN PO HEADACHE or DISCOMFORT; Start 08/13/18 at 01:00 Al Hydrox/Mg Hydrox/Simethicone (Mylanta) 30 ml Q4HP PRN PO HEARTBURN/INDIGESTION; Start 08/13/18 at 01:00 Diphenhydramine HCl (Benadryl) 50 mg QHSP PRN PO INSOMNIA; Start 08/13/18 at 11:15 Home Med (Med Rec Complete!) ASDIRECTED XX ; Start 08/13/18 at 01:30; Stop 08/13/18 at 01:30; Status DC Lorazepam (Ativan) 1 mg Q4HP PRN PO ANXIETY/AGITATION; Start 08/13/18 at 01:00 Magnesium Hydroxide (Milk Of Magnesia) 30 ml DAILYPRN PRN PO CONSTIPATION; Start 08/13/18 at 01:00 Venlafaxine HCl (Effexor Xr) 150 mg DAILY PO Last administered on 08/15/18at 09:24; Start 08/14/18 at 09:00 Venlafaxine HCl (Effexor) 75 mg DAILY PO Last administered on 08/13/18at 10:13; Start 08/13/18 at 09:00; Stop 08/13/18 at 11:02; Status DC Allergies Coded Allergies: No Known Drug Allergy (Verified Allergy, Unknown, 10/15/17) CHRISTOPHER SOUSA MD Aug 15, 2018 19:31
[2018-08-16 06:09] VITALS: BP 118/62
[2018-08-16] MEDS: VENLAFAXINE **XR** 75MG CAPSULE PO SCH (09:15)
--- NOTE | 2018-08-16 17:10 | MHIPNPDOC ---
[facility] Progress Note Progress Note DATE OF SERVICE: 08/16/18 HISTORY: Patient is a 23 -year-old , AD, male, with a history of depression and multiple admission [facility] with last being 04/13/18 for SI who was brought to ED by EMS after he called his CO and told him he took an OD of trazodone as a suicide attempt stating "I want to ." Per ED pt took 1,100mg trazodone and received activated charcoal in the ED. Pt in the ED endorsed depression, anxiety, SI due to multiple psychosocial stresses, the biggest one being med-boarded out of the with no plans as to what to do or where to go for the future. Per Ed, pt was vague and guarded. VITAL SIGNS: See below. NEW TEST RESULTS: See below. CURRENT MEDICATIONS: See below. MENTAL STATUS EXAMINATION: General Appearance: well groomed, appears stated age, hospital scrubs/clothing Build: average Demeanor: appears to be happy and content Eye Contact: fair Activity: average Behavior: cooperative, less guarded Speech: clear, low in volume Mood: euthymic Mood "I'm OK" Affect: euthymic, flat Thought Process: logical/linear, intact Thought Content (Delusions): none reported, denies SI, HI, AVH Thought Content (Other): none reported, appropriate Thought Content (Aggressive): none reported Perception (Hallucinations): none reported Perception (Other): none reported Cognition (Impairment of): none reported Cognition(Intelligence Est.): average Oriented: Awake, Alert, Oriented times three Insight: fair Judgment: Fair Psychosis: Denies DIAGNOSES: Depression Unspecified R/O adjustment d/o with depression R/O borderline vs antisocial personality d/o (based on history of ODD) ASSESSMENT: MANAGEMENT PLAN: Will continue with current treatment plan (As per Dr. Mcmanus) effexor xr 150mg daily TIME SPENT: 20minutes. Vital Signs Vital Signs Date Time Temp Pulse Resp B/P (MAP) Pulse Ox O2 Delivery O2 Flow Rate FiO2 08/16/18 06:09 98.4 95 14 118/62 (80) 08/13/18 01:27 99 08/12/18 18:22 Room Air Current Medications Current Medications Acetaminophen (Tylenol Tab) 650 mg Q6HP PRN PO HEADACHE or DISCOMFORT; Start 08/13/18 at 01:00 Al Hydrox/Mg Hydrox/Simethicone (Mylanta) 30 ml Q4HP PRN PO HEARTBURN/INDIGE STION; Start 08/13/18 at 01:00 Diphenhydramine HCl (Benadryl) 50 mg QHSP PRN PO INSOMNIA Last administered on 08/16/18at 01:40; Start 08/13/18 at 11:15 Home Med (Med Rec Complete!) ASDIRECTED XX ; Start 08/13/18 at 01:30; Stop 08/13/18 at 01:30; Status DC Lorazepam (Ativan) 1 mg Q4HP PRN PO ANXIETY/AGITATION; Start 08/13/18 at 01:00 Magnesium Hydroxide (Milk Of Magnesia) 30 ml DAILYPRN PRN PO CONSTIPATION; Start 08/13/18 at 01:00 Venlafaxine HCl (Effexor Xr) 150 mg DAILY PO Last administered on 08/16/18at 09:15; Start 08/14/18 at 09:00 Venlafaxine HCl (Effexor) 75 mg DAILY PO Last administered on 08/13/18at 10:13; Start 08/13/18 at 09:00; Stop 08/13/18 at 11:02; Status DC Allergies Coded Allergies: No Known Drug Allergy (Verified Allergy, Unknown, 10/15/17) CHRISTOPHER SOUSA MD Aug 16, 2018 10:55
[2018-08-16 18:02] VITALS: BP 151/71
[2018-08-17 06:00] VITALS: BP 135/73
[2018-08-17] MEDS: VENLAFAXINE **XR** 75MG CAPSULE PO SCH (08:36)
--- NOTE | 2018-08-17 10:51 | MHIPNPDOC ---
[facility] Progress Note Progress Note DATE OF SERVICE: 08/17/18 HISTORY: Patient is a 23 -year-old , AD, male, with a history of depression and multiple admission [facility] with last being 04/13/18 for SI who was brought to ED by EMS after he called his CO and told him he took an OD of trazodone as a suicide attempt stating "I want to ." Per ED pt took 1,100mg trazodone and received activated charcoal in the ED. Pt in the ED endorsed depression, anxiety, SI due to multiple psychosocial stresses, the biggest one being med-boarded out of the with no plans as to what to do or where to go for the future. Per Ed, pt was vague and guarded. VITAL SIGNS: See below. NEW TEST RESULTS: See below. CURRENT MEDICATIONS: See below. MENTAL STATUS EXAMINATION: General Appearance: well groomed, appears stated age, hospital scrubs/clothing Build: average Demeanor: withdrawn Eye Contact: fair Activity: average Behavior: cooperative, withdrawn Speech: clear, low in volume Mood: euthymic, flat Mood better Affect: euthymic, flat Thought Process: logical/linear, intact, improved worrisome thoughts Thought Content (Delusions): none reported, denies SI, HI, AVH Thought Content (Other): none reported, appropriate Thought Content (Aggressive): none reported Perception (Hallucinations): none reported Perception (Other): none reported Cognition (Impairment of): none reported Cognition(Intelligence Est.): average Oriented: Awake, Alert, Oriented times three Insight: fair Judgment: Fair Psychosis: Denies DIAGNOSES: Depression Unspecified R/O adjustment d/o with depression R/O borderline vs antisocial personality d/o (based on history of ODD) ASSESSMENT:Pt seen and states that his mood is "ok". States he slept well last night. Feels he is tolerating his medications and it's beneficial. He is attending groups and finding them helpful. He denies insomnia, SI/HI, hallucinations, delusions. Improved worrisome thoughts. Pt feels safe here. MANAGEMENT PLAN: continue plan effexor xr 150mg daily TIME SPENT: 30minutes. Vital Signs Vital Signs Date Time Temp Pulse Resp B/P (MAP) Pulse Ox O2 Delivery O2 Flow Rate FiO2 08/17/18 06:00 98.5 72 16 135/73 (93) 99 08/12/18 18:22 Room Air Current Medications Current Medications Acetaminophen (Tylenol Tab) 650 mg Q6HP PRN PO HEADACHE or DISCOMFORT; Start 08/13/18 at 01:00 Al Hydrox/Mg Hydrox/Simethicone (Mylanta) 30 ml Q4HP PRN PO HEART BURN/INDIGESTION; Start 08/13/18 at 01:00 Diphenhydramine HCl (Benadryl) 50 mg QHSP PRN PO INSOMNIA Last administered on 08/16/18at 01:40; Start 08/13/18 at 11:15 Home Med (Med Rec Complete!) ASDIRECTED XX ; Start 08/13/18 at 01:30; Stop 08/13/18 at 01:30; Status DC Lorazepam (Ativan) 1 mg Q4HP PRN PO ANXIETY/AGITATION; Start 08/13/18 at 01:00 Magnesium Hydroxide (Milk Of Magnesia) 30 ml DAILYPRN PRN PO CONSTIPATION; Start 08/13/18 at 01:00 Venlafaxine HCl (Effexor Xr) 150 mg DAILY PO Last administered on 08/17/18at 08:36; Start 08/14/18 at 09:00 Venlafaxine HCl (Effexor) 75 mg DAILY PO Last administered on 08/13/18at 10:13; Start 08/13/18 at 09:00; Stop 08/13/18 at 11:02; Status DC Allergies Coded Allergies: No Known Drug Allergy (Verified Allergy, Unknown, 10/15/17) LISBETH ORANTES DO Aug 17, 2018 10:51 am
[2018-08-17 18:00] VITALS: BP 131/70
[2018-08-18 06:34] VITALS: BP 130/65
--- NOTE | 2018-08-18 08:40 | MHDSPDOC ---
[facility] Discharge Summary Discharge Summary DATE OF ADMISSION: Aug 13, 2018 at 12:49 am DATE OF DISCHARGE: Aug 18, 2018 DISCHARGE DIAGNOSES: Depression Unspecified R/O adjustment d/o with depression R/O borderline vs antisocial personality d/o (based on history of ODD) REASON FOR ADMISSION: Patient is a 23 -year-old , AD, male, with a history of depression and multiple admission [facility] with last being 04/13/18 for SI who was brought to ED by EMS after he called his CO and told him he took an OD of trazodone as a suicide attempt stating "I want to ." Per ED pt took 1,100mg trazodone and received activated charcoal in the ED. Pt in the ED endorsed depression, anxiety, SI due to multiple psychosocial stresses, the biggest one being med-boarded out of the with no plans as to what to do or where to go for the future. Per Ed, pt was vague and guarded. CONSULTANTS INVOLVED: none TREATMENT AND PROGRESS ON THE UNIT : Pt was admitted to [facility], seen for psychiatric assessment and restarted on his outpatient medication effexor xr increased to 150mg daily. He was provided benadryl 50mg qhs prn insomnia. Pt found his medications beneficial and tolerated them well. He attended groups daily during his stay. His symptoms improved with treatment. On day of discharge he denied depression, anxiety, insomnia, SI/HI, hallucinations, delusions. He was discharged home after Angela meeting with follow-up at [facility]. He felt safe for discharge. DISCHARGE ASSESSMENT: Pt seen and states that his mood is "good" and he's looking forward to going home today States he slept well last night. Feels he is tolerating his medications and it's beneficial. He is attending groups and finding them helpful. He denies depression, anxiety, insomnia, SI/HI, hallucinations, delusions. Improved worrisome thoughts. Pt feels to be dischar ged home with his Angela. MENTAL STATUS EXAMINATION ON DISCHARGE: General Appearance: well groomed, appears stated age, hospital scrubs/clothing Build: average Demeanor: cooperative, calm Eye Contact: good Activity: average Behavior: cooperative, withdrawn Speech: clear, reg rate/rhythm/volume Mood: euthymic, full Mood good Affect: euthymic, full Thought Process: logical/linear, intact, improved worrisome thoughts Thought Content (Delusions): none reported, denies SI, HI, AVH Thought Content (Other): none reported, appropriate Thought Content (Aggressive): none reported Perception (Hallucinations): none reported Perception (Other): none reported Cognition (Impairment of): none reported Cognition(Intelligence Est.): average Oriented: Awake, Alert, Oriented times three Insight: good Judgment: good Psychosis: Denies MEDICATIONS ON DISCHARGE: effexor xr 150mg daily benadryl 50mg qhs prn insomnia PLAN/FOLLOWUP ARRANGEMENTS: D/c home with [facility] with follow-up at [facility]. The amount of time spent in the coordination of care for this patient was approximately 30 minutes. Vital Signs/I&Os Vital Signs Date Time Temp Pulse Resp B/P (MAP) Pulse Ox O2 Delivery O2 Flow Rate FiO2 08/18/18 06:34 98.5 73 16 130/65 (86) 08/17/18 06:00 99 08/12/18 18:22 Room Air Medications Scheduled Venlafaxine HCl (Venlafaxine HCl ER) 75 Mg Capcr, 150 MG PO DAILY for mood, #20 Scheduled PRN Diphenhydramine HCl (Diphenhydramine HCl) 50 Mg Cap, 50 MG PO QHSP PRN for INSOMNIA, #10 Allergies Coded Allergies: No Known Drug Allergy (Verified Allergy, Unknown, 10/15/17) LISBETH ORANTES DO Aug 18, 2018 8:40 am
[2018-08-18] MEDS ORDERED: DIPH50CA PO (08:42)
[2018-08-18] MEDS ORDERED: VENL75CA47 PO (08:42)
[2018-08-18] MEDS: VENLAFAXINE **XR** 75MG CAPSULE PO SCH (09:01)
== END 2018-08-18 14:22 | disposition home or self-care (01) | DRG 881 ==
LOC: EDBD 17:47 → M ED 17:47 → M ED INP 08-13 00:49 → M PSY 08-13 01:42
PROVIDERS: ADMIT Psychiatry & Neurology Psychiatry; ATTEND Psychiatry & Neurology Psychiatry
DX: F43.21 Adjustment disorder with depressed mood (principal); R45.851 Suicidal ideations; F60.3 Borderline personality disorder; F60.2 Antisocial personality disorder; F41.9 Anxiety disorder, unspecified; E87.6 Hypokalemia

== ENCOUNTER 2018-09-05 12:44 | Emergency (ER) | payer OTHER ==
[~2018-09-05] VITALS: Ht 182.9 cm; Wt 93.6 kg
[~2018-09-05 12:44] MED LIST changes: +DIPH50CA PO; +TRAZ-160 PO; +VENL75CA47 PO
[2018-09-05 12:45] VITALS: BP 144/85
== END 2018-09-05 13:41 | disposition home or self-care (01) ==
LOC: M ED 12:44
DX: S00.511A Abrasion of lip, initial encounter (principal); W18.39XA Other fall on same level, initial encounter; Y92.410 Unspecified street and highway as the place of occurrence of the external cause